=== PATIENT | male | born 1945 | race Caucasian/White ===

== ENCOUNTER → 2016-04-23 | Outpatient (CLI) | payer MEDICARE, OTHER ==
[~2016-04-23] MED LIST: /TAMS4CA PO; CIPR500T89 PO; FERR325T3 PO; FLAG500T PO; No medications; SYNT25TA PO; TRAZ50TA2 PO; TYLE325T5 PO; VANC5INJ5 PO; VENL37TA PO; WELL100T PO; WELL75TA PO; effexor xr PO
--- NOTE | 2016-04-23 13:14 | REP ---
CHEST X-RAY: PA AND LATERAL, 04/23/2016. Clinical history: Bronchitis symptoms. Cough. Comparison: 04/15/2012. Findings: Lungs are mildly hyperinflated. There is apical pleuroparenchymal scarring, right greater than left. There are postoperative changes with healed and remodeled fractures posterolateral right 6th and 7th ribs. No acute infiltrate, atelectasis or mass noted. The heart is not enlarged. The aorta is mildly tortuous but normal for age. Airway intact. I see no cuffed bronchi in the perihilar regions. The bones show no acute compression deformity or destructive lesion. There are marginal osteophytes evident. Impression: 1. No infiltrate effusion plain film signs of bronchitis or other acute parenchymal lung findings. 2. No cardiomegaly, edema, or significant mediastinal abnormality. 3. Chronic post-traumatic changes right posterolateral chest wall involving the 6th and 7th ribs. Signed by Shawn Vaughn MD 04/23/2016 07:36 P
== END ==
LOC: M ADAMS 10:58
PROVIDERS: ATTEND Physician Assistant Medical
DX: J20.9 Acute bronchitis, unspecified (principal)

== ENCOUNTER 2019-05-01 12:53 | Inpatient (IN) | payer MEDICARE ==
[~2019-05-01] VITALS: Ht 185.4 cm; Wt 61.5 kg
[~2019-05-01 12:53] MED LIST changes: -/TAMS4CA PO; +FLOM0.4C39 PO
[2019-05-01] MEDS ORDERED: EFFE75CA2 PO (13:06)
[2019-05-01 13:47] LABS: HEMATOCRIT 45.3 % (42.0-52.0); HEMOGLOBIN 14.9 g/dl (13.5-17.5); MEAN CORPUSCULAR HEMOGLOBIN 29.7 pg (27.0-33.0); MEAN CORPUSCULAR HGB CONC 32.9 g/dl (32.0-36.5); MEAN CORPUSCULAR VOLUME 90.2 fl (80.0-96.0); PLATELET COUNT, AUTOMATED 380 10^3/uL (150-450); RED BLOOD COUNT 5.02 10^6/uL (4.30-6.10); WHITE BLOOD COUNT 12.5 10^3/uL (4.0-10.0)
[2019-05-01 14:18] LABS: AMPHETAMINES LEVEL URINE NEGATIVE (NEGATIVE); BARBITURATES URINE NEGATIVE (NEGATIVE); BENZODIAZEPINES URINE NEGATIVE (NEGATIVE); CANNABINOIDS URINE NEGATIVE (NEGATIVE); COCAINE METABOLITE URINE NEGATIVE (NEGATIVE); METHADONE URINE NEGATIVE (NEGATIVE); OPIATES URINE NEGATIVE (NEGATIVE); PHENCYCLIDINE URINE NEGATIVE (NEGATIVE)
[2019-05-01 14:30] LABS: ACETAMINOPHEN LEVEL < 2.0 UG/ML (10.0-30.0); ALBUMIN 4.1 GM/DL (3.2-5.2); ALT/SGPT 23 U/L (12-78); BILIRUBIN,DIRECT 0.1 MG/DL (0.0-0.2); BILIRUBIN,TOTAL 0.4 MG/DL (0.2-1.0); BLOOD UREA NITROGEN 20 MG/DL (7-18); CALCIUM LEVEL 9.7 MG/DL (8.8-10.2); CARBON DIOXIDE LEVEL 33 MEQ/L (21-32); CHLORIDE LEVEL 99 MEQ/L (98-107); CREATININE FOR GFR 1.44 MG/DL (0.70-1.30); ETHYL ALCOHOL (ETHANOL) < 0.003 % (0.000-0.010); GLOMERULAR FILTRATION RATE 51.2 (>42); GLUCOSE, FASTING 133 MG/DL (70-100); POTASSIUM SERUM 4.4 MEQ/L (3.5-5.1); SALICYLATE LEVEL < 1.7 MG/DL (5.0-30.0); SODIUM LEVEL 137 MEQ/L (136-145); TOTAL PROTEIN 7.7 GM/DL (6.4-8.2)
--- NOTE | 2019-05-01 15:43 | REP ---
Clinical: Left inguinal pain. Technique: Real time baxter scale ultrasound examination using linear high frequency transducer. Findings: A nonreducible left inguinal hernia at the internal ring containing loop of bowel and mesenteric fat is appreciated. Inguinal defect measures up to 18 mm on Valsalva. Impression: A nonreducible left inguinal hernia containing loop of bowel. Electronically Signed by Emerson Mock MD 05/01/2019 03:35 P
--- NOTE | 2019-05-01 15:45 | REP ---
Clinical: Left groin pain. Technique: Real time baxter scale and Doppler evaluation using linear and curved array transducers. Findings: The bilateral testicles and epididymi are normal in contour, size, echogenicity and vascularity. No torsion, infectious/inflammatory process, or mass lesion identified. Small amount of scrotal fluid noted bilaterally. No varicocele. Right testicle measures 4.8 x 2.3 x 2.5 cm. Left testicle measures 4.2 x 1.7 x 2.3 cm. Impression: 1. Normal bilateral testicles/epididymi. 2. Small hydroceles. Electronically Signed by Emerson Mock MD 05/01/2019 03:36 P
[2019-05-01] MEDS ORDERED: IBUPROFEN 400 MG TAB PO PRN (18:15)
[2019-05-01] MEDS ORDERED: traZODone 50 MG TAB PO PRN (18:15)
[2019-05-01] MEDS ORDERED: MOM 30ML SUSPENSION UDC PO PRN (18:15)
[2019-05-01] MEDS ORDERED: MAALOX 30 ML SUSP *UDC PO PRN (18:15)
[2019-05-01 23:25] VITALS: BP 132/78
[2019-05-02 06:31] VITALS: BP 154/91
[2019-05-02] MEDS ORDERED: PREVNAR 13 VACCINE SYRINGE (CPT CODE:90670) IM ONE (09:00)
--- NOTE | 2019-05-02 09:17 | MHHPEPDOC ---
[facility] History & Physical History and Physical DATE OF ADMISSION: May 01, 2019 at 18:01 New Patient Taras Brady MRN: N/A Date of : N/A Date of Service: 05/02/2019 Chief Complaint "I stopped all my medications and now I am depressed." History of Present Illness The patient, a 73-year-old man with a history of depression previously on Effexor presents after stopping his medications some time ago. He reports that he became increasingly depressed, despondent and increasingly had difficulty attending to his needs due to his lack of motivation. The patient's ycpomdly-ic-zlv brought the patient in as she was concerned about his increasing depression and he had reported thoughts of wanting to end his life. He reported being essentially "home-bound." He reports that he had been on our inpatient unit several years ago and feels that he has returned to a similar level of disconcerting misery. Review Of Systems Depression: As above. Anxiety: The patient denies any excessive worry associated with physical symptoms. They deny any experience of discreet panic in the past. Cydney: The patient denies any episodes of euphoria/dysphoria associated with decreased need for sleep, hedonism, talkatively or impulsivity lasting longer than 5 days. Psychotic: The patient denies any experiences of auditory or visual hallucinations. They deny any episodes of paranoia or delusional thinking in the past Trauma: The patient denies any traumatic events associated with nightmares or intrusive thoughts. Borderline: The patient screens negative for borderline personality at this junction. Past Psychiatric History Has a history of depression treated on Effexor in the past. Reported that at 300 mg he had side effects and subsequently stopped it. The patient previously followed up with a private practice psychiatrist, but not currently. Reports no history of suicide attempts. Allergies Please see below. Family Psychiatric History The patient denies/is unaware any history of mental health history including addictions and suicide. Social History The patient is a currently man who has several adult children. 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 He graduated from high school with some college. No history of legal problems. He currently lives alone. Patient reports no history of trauma or abuse growing up in the local area. Substance Abuse History The patient denies any excessive alcohol use, tobacco or illicit drug use, denies history of substance use treatment. Medical History Has a history of hypercholesterolemia and prostate problems. Mental Status Examination General: Well dressed with good hygiene Speech: Spontaneous and fluid Thought processes: Linear and logical MSK: Smooth and coordinated gait, no signs of tremors or involuntary orofacial movements Thought content: Hopelessness Abstract reasoning, and computation: Intact Description of associations: Intact Description of abnormal or psychotic thoughts: Admits to some fleeting suicidal ideation. Denies homicidal. Denies auditory or visual hallucinations Judgment: fair Insight: fair Orientation: Alert and orientated 3 Cognition: Grossly normal Recent and remote memory: Intact Attention span and concentration: Intact Fund of knowledge: Adequate Mood: "bad" Affect: Dysthymic with a constricted range Diagnoses MDD, moderate to severe, recurrent. Assessment and Plan MDD: Resume venlafaxine 37.5 mg daily of extended release, discussed the risks, benefits and potential side effects with patient as well as alternatives. Disposition The patient need a further inpatient admission to treat his severe depression and suicidal thoughts. Problem List 1. Risk for suicide. 2. Depression. Initial Treatment Plan 1. Patient was admitted on a 9.39 legal status. 2. Complete history was obtained. 3. With patients permission, family will be contacted and database will be expanded. 4. Patients medication regimen will be reviewed and changed accordingly. 5. Patient will be provided with protected environment. 6. Patient will be treated with individual, group, and milieu therapies. 7. Patient will receive supportive psych-education. 8. Discharge planning will commence immediately. 9. Outpatient follow-up treatment will be strongly recommended. 10. The initial treatment plan will focus initially on: Estimated Length Of Stay 4 days. Time Spent 70 minutes with greater than 50% of time on counseling/coordination of care. Vital Signs Vital Signs Date Time Temp Pulse Resp B/P (MAP) Pulse Ox O2 Delivery O2 Flow Rate FiO2 05/02/19 06:31 97.3 63 18 154/91 (112) 05/01/19 23:25 97 Room Air Laboratory Data 24H Labs Laboratory Tests 2 05/01/19 13:35: Nucleated Red Blood Cells % (auto) 0.0, Anion Gap 5L, Glomerular Filtration Rate 51.2, Calcium Level 9.7, Total Bilirubin 0.4, Direct Bilirubin 0.1, Aspartate Amino Transf (AST/SGOT) 13, Alanine Aminotransferase (ALT/SGPT) 23, Alkaline Phosphatase 157H, Total Protein 7.7, Albumin 4.1, Albumin/Globulin Ratio 1.14, Thyroid Stimulating Hormone (TSH) 5.890H, Salicylates Level < 1.7L, Urine Opiates Screen NEGATIVE, Urine Methadone Screen NEGATIVE, Acetaminophen Level < 2.0L, Urine Barbiturates Screen NEGATIVE, Urine Phencyclidine Screen NEGATIVE, Urine Amphetamines Screen NEGATIVE, Urine Benzodiazepines Screen NEGATIVE, Urine Cocaine Metabolite Screen NEGATIVE, Urine Cannabinoids Screen NEGATIVE, Ethyl Alcohol Level < 0.003 CBC/BMP Laboratory Tests 05/01/19 13:35 Medications No Active Prescriptions or Reported Meds Allergies Coded Allergies: Penicillins (Verified Allergy, Unknown, 05/01/19) A-FIB/CHADSVASC A-FIB History Current/History of A-Fib/PAF?: No ELVIS ERVIN DO May 02, 2019 09:16
[2019-05-02] MEDS ORDERED: VENLAFAXINE **XR** 37.5 MG CAPSULE PO ONE (11:15)
[2019-05-02 16:00] VITALS: BP 119/71
--- NOTE | 2019-05-02 17:55 | HPEPDOC ---
[facility] Medical History & Physical Date of Admission May 02, 2019 Date of Service: May 02, 2019 Attending Physician: DUSTIN JERONIMO MD History and Physical CHIEF COMPLAINT: Depression HISTORY OF PRESENT ILLNESS: 73-year-old male with past medical history of depression is admitted to inpatient mental health unit for worsening depression. Patient reports that he stopped taking Effexor in November 2018 due to unwanted side effects. Patient reports worsening depression since then, reports decreased oral intake, fatigue and increased sleepiness over the past few weeks. His son and hnjkjjyf-qc-vsf got concerned and brought him to the hospital, has no cough place at this time. Patient reports fleeting thoughts of suicide but no plan or attempt, no suicidal or homicidal ideation at this time. He denies any short of breath, chest pain, nausea, vomiting, abdominal pain or diarrhea. 10 point review of system is negative except for above PAST MEDICAL HISTORY: 1. Depression. PAST SURGICAL HISTORY: 1. Cataract surgery. SOCIAL HISTORY: Previous smoker, quit many years ago. Denies alcohol use. Next eye denies drug use FAMILY HISTORY: Mother had COPD ALLERGIES: Please see below. HOME MEDICATIONS: Please see below. PHYSICAL EXAMINATION: VITAL SIGNS: Please see below. GENERAL: No distress HEENT: Normocephalic, atraumatic, moist mucous membranes NECK: Supple CARDIOVASCULAR EXAMINATION: S1, S2, no murmurs RESPIRATORY EXAMINATION: Clear to auscultation, no wheezing ABDOMINAL EXAMINATION: Soft, nontender, nondistended, positive bowel sounds EXTREMITIES: Range of motion intact SKIN: No rash NEUROLOGICAL EXAMINATION: Alert and oriented 3, no focal deficits PSYCHIATRIC EXAMINATION: Calm and cooperative LABORATORY DATA: See below. MICROBIOLOGY: Please see below. ASSESSMENT: 73-year-old male with past medical history depression is admitted to inpatient mental health unit for worsening depression after stopping his medication. PLAN: 1. Depression. Management as per primary team 2. Elevated creatinine. Reports recently decreased oral intake, recommend increase oral intake, repeat labs and follow up with primary care physician in the outpatient setting. Denies prior history of chronic kidney disease Vital Signs Vital Signs Date Time Temp Pulse Resp B/P (MAP) Pulse Ox O2 Delivery O2 Flow Rate FiO2 05/02/19 11:11 Room Air 05/02/19 06:31 97.3 63 18 154/91 (112) 05/01/19 23:25 97 Home Medications No Active Prescriptions or Reported Meds Allergies Coded Allergies: Penicillins (Verified Allergy, Unknown, 05/01/19) A-FIB/CHADSVASC A-FIB History Current/History of A-Fib/PAF?: No DUSTIN JERONIMO MD May 02, 2019 17:55
[2019-05-03 06:54] VITALS: BP 153/72
[2019-05-03] MEDS ORDERED: VENLAFAXINE **XR** 37.5 MG CAPSULE PO SCH (09:00)
--- NOTE | 2019-05-03 10:36 | MHIPNPDOC ---
[facility] Progress Note Progress Note Inpatient Progress Note Taras Brady MRN: N/A Date of : N/A Date of Service: 05/03/2019 History of Present Illness The patient, a 73-year-old man with a history of depression previously on Effexor presents after stopping his medications some time ago. He reports that he became increasingly depressed, despondent and increasingly had difficulty attending to his needs due to his lack of motivation. The patient's oqoyolyc-jy-cfc brought the patient in as she was concerned about his increasing depression and he had reported thoughts of wanting to end his life. He reported being essentially "home-bound." He reports that he had been on our inpatient unit several years ago and feels that he has returned to a similar level of disconcerting misery. Interval History Narrative: The patient has met with. He reports he is doing "fine." Affective: The patient reports some improved mood, but still some loss of interest and concentration problems Psychotic: Denies any symptoms. Anxiety: Reports some situational worries. Eating and sleeping behaviors: Normalizing. Group Attendance: Frequent. Medication Side effects: See ROS below Behavioral problems/significant events overnight: None reported. Staff Report: The patient is generally easy to engage, although appears quite depressed. Review Of Systems General: Denies fever or appetite changes Cardiovascular: Denies Chest pain or palpations GI: Denies Nausea, vomiting, or bowel changes Respiratory: Denies shortness of breath or cough Neuro: Denies dizziness, tremors Derm: Denies any rashes or pruritus : Denies any dysuria or urinary problems MSK: Denies any muscle tightness or stiffness HEENT: Denies any vision changes or headaches Psychotherapy None on this visit. Vital Signs Reviewed. Mental Status Examination General: Well dressed with good hygiene Speech: Spontaneous and fluid Thought processes: Linear and logical MSK: Smooth and coordinated gait, no signs of tremors or involuntary orofacial movements Thought content: Hopelessness Abstract reasoning, and computation: Intact Description of associations: Intact Description of abnormal or psychotic thoughts: Admits to some fleeting suicidal ideation. Denies homicidal. Denies auditory or visual hallucinations Judgment: fair Insight: fair Orientation: Alert and orientated 3 Cognition: Grossly normal Recent and remote memory: Intact Attention span and concentration: Intact Fund of knowledge: Adequate Mood: "a little better" Affect: Some improvement, but still quite dysthymic Diagnoses MDD, moderate to severe, recurrent. Assessment and Plan MDD: Increase venlafaxine to 75 mg daily of extended release. Disposition The patient will be converted to voluntary status and observed over the weekend, with potential discharge on Monday will be undertaken if there is improvement. Time Spent 15 minutes acpe-kg-[id number]. Monday Vital Signs Vital Signs Date Time Temp Pulse Resp B/P (MAP) Pulse Ox O2 Delivery O2 Flow Rate FiO2 05/03/19 06:54 98.6 58 14 153/72 (99) 05/02/19 11:11 Room Air 05/01/19 23:25 97 Current Medications Current Medications Medications (Trade) Dose Ordered Sig/Kori Route PRN Reason Start Time Stop Time Status Last Admin Dose Admin Al Hydrox/Mg Hydrox/Simethicone (Mylanta) 30 ml Q4HP PRN PO HEARTBURN/INDIGESTION 05/01/19 18:15 Home Med (Med Rec Complete!) ASDIRECTED XX 05/01/19 18:30 05/01/19 18:27 DC Ibuprofen (Advil) 400 mg Q6HP PRN PO PAIN 05/01/19 18:15 Magnesium Hydroxide (Milk Of Magnesia) 30 ml DAILYPRN PRN PO CONSTIPATION 05/01/19 18:15 Trazodone HCl (Desyrel) 50 mg QHSP PRN PO INSOMNIA 05/01/19 18:15 Venlafaxine HCl (Effexor Xr) 37.5 mg DAILY PO 05/03/19 09:00 05/03/19 08:40 Allergies Coded Allergies: Penicillins (Verified Allergy, Unknown, 05/01/19) ELVIS ERVIN DO May 03, 2019 10:36
[2019-05-03 16:50] VITALS: BP 130/74
[2019-05-04 06:18] VITALS: BP 137/64
[2019-05-04] MEDS ORDERED: VENLAFAXINE **XR** 75MG CAPSULE PO SCH (09:00)
--- NOTE | 2019-05-04 15:28 | MHIPNPDOC ---
[facility] Progress Note Progress Note DATE OF SERVICE: 05/04/19 HISTORY: As per Dr. Dial: "History of Present Illness The patient, a 73-year-old man with a history of depression previously on Effexor presents after stopping his medications some time ago. He reports that he became increasingly depressed, despondent and increasingly had difficulty attending to his needs due to his lack of motivation. The patient's yoxidnmr-pi-lll brought the patient in as she was concerned about his increasing depression and he had reported thoughts of wanting to end his life. He reported being essentially "home-bound." He reports that he had been on our inpatient unit several years ago and feels that he has returned to a similar level of disconcerting misery." VITAL SIGNS: See below. NEW TEST RESULTS: See below CURRENT MEDICATIONS: See below. MENTAL STATUS EXAMINATION: Patient is a 73 year old male, who is alert, cooperative, dressed in hospital clothes, clean . Speech: Is slow, spontaneous and fluent, normal tone and volume. Language skills are intact. Thought processes including: linear and coherent. Thought content: He feels hopeless, helpless, fleeting SI w/o a plan. Denies HI, denies thought delusions. Abstract reasoning, and computation: Good. Description of associations: Intact Description of abnormal or psychotic thoughts: denies thought delusions, denies TAv hallucinations, not responding to internal stimuli. Judgment: Fair Insight: fair. Orientation: x 3. Recent and remote memory: Intact. Attention span and concentration: adequate Fund of knowledge: adequate Mood: sad/depressed. Affect: constricted, congruent with mood. DIAGNOSES: MDD, moderate to severe, recurrent. ASSESSMENT: will discuss with Dr. Dial possible medication change becaus the patient and his daughter say that he has been o Effexor before and he doesn't like the way it makes him feel. His daughter says he was on this edication for a long period of time and she never saw the results of it. The patient says he has been on Effexor, Wellbutrin and he can't recall other SNR'Is or SSRI's but he says that he would be willing to take something that would help him. He says his mother had depression and he knows he has inherited it, has suffered from it for a long period of time. Discussed with him about starting Sertraline and spoke with Dr. Dial, both of them agree to change his medication. MANAGEMENT PLAN: -discontinue Effexor XR 75 mgs Po daily -start Zoloft 50 mgs PO daily TIME SPENT: 20 minutes. Vital Signs Vital Signs Date Time Temp Pulse Resp B/P (MAP) Pulse Ox O2 Delivery O2 Flow Rate FiO2 05/04/19 06:18 97.2 57 18 137/64 (88) 05/02/19 11:11 Room Air 05/01/19 23:25 97 Current Medications Current Medications Medications (Trade) Dose Ordered Sig/Kori Route PRN Reason Start Time Stop Time Status Last Admin Dose Admin Al Hydrox/Mg Hydrox/Simethicone (Mylanta) 30 ml Q4HP PRN PO HEARTBURN/INDIGESTION 05/01/19 18:15 Home Med (Med Rec Complete!) ASDIRECTED XX 05/01/19 18:30 05/01/19 18:27 DC Ibuprofen (Advil) 400 mg Q6HP PRN PO PAIN 05/01/19 18:15 Magnesium Hydroxide (Milk Of Magnesia) 30 ml DAILYPRN PRN PO CONSTIPATION 05/01/19 18:15 Trazodone HCl (Desyrel) 50 mg QHSP PRN PO INSOMNIA 05/01/19 18:15 05/03/19 21:48 Venlafaxine HCl (Effexor Xr) 37.5 mg DAILY PO 05/03/19 09:00 05/03/19 13:04 DC 05/03/19 08:40 Venlafaxine HCl (Effexor Xr) 75 mg DAILY PO 05/04/19 09:00 05/04/19 09:35 Allergies Coded Allergies: Penicillins (Verified Allergy, Unknown, 05/01/19) MYRANDA CASTELLANOS MD May 04, 2019 15:16
[2019-05-04 16:13] VITALS: BP 125/65
[2019-05-05 06:38] VITALS: BP 152/78
[2019-05-05] MEDS: SERTRALINE HCL 50 MG TAB PO SCH (09:33)
--- NOTE | 2019-05-05 11:00 | MHIPNPDOC ---
[facility] Progress Note Progress Note DATE OF SERVICE: 05/05/19 DATE OF SERVICE: 05/04/19 HISTORY: As per Dr. Dial: "History of Present Illness The patient, a 73-year-old man with a history of depression previously on Effexor presents after stopping his medications some time ago. He reports that he became increasingly depressed, despondent and increasingly had difficulty attending to his needs due to his lack of motivation. The patient's qrndffqo-iw-qho brought the patient in as she was concerned about his increasing depression and he had reported thoughts of wanting to end his life. He reported being essentially "home-bound." He reports that he had been on our inpatient unit several years ago and feels that he has returned to a similar level of disconcerting misery." VITAL SIGNS: See below. NEW TEST RESULTS: See below CURRENT MEDICATIONS: See below. MENTAL STATUS EXAMINATION: Patient is a 73 year old male, who is alert, cooperative, dressed in hospital clothes, clean . Speech: Is slow, spontaneous and fluent, normal tone and volume. Language skills are intact. Thought processes including: linear and coherent. Thought content: He feels hopeless, helpless, fleeting SI w/o a plan. Denies HI, denies thought delusions. Abstract reasoning, and computation: Good. Description of associations: Intact Description of abnormal or psychotic thoughts: denies thought delusions, denies TAv hallucinations, not responding to internal stimuli. Judgment: Fair Insight: fair. Orientation: x 3. Recent and remote memory: Intact. Attention span and concentration: adequate Fund of knowledge: adequate Mood: irritable/sad Affect: constricted, congruent with mood. DIAGNOSES: MDD, moderate to severe, recurrent. ASSESSMENT: Spoke with patient this morning who reports receiving his zoloft 50 mgs. He says he took it 1/2 hour ago, he can't tell of any side effects at this time. Will continue to monitor. MANAGEMENT PLAN: -discontinue Effexor XR 75 mgs Po daily -start Zoloft 50 mgs PO daily TIME SPENT: 20 minutes. Vital Signs Vital Signs Date Time Temp Pulse Resp B/P (MAP) Pulse Ox O2 Delivery O2 Flow Rate FiO2 05/05/19 06:38 98.7 18 152/78 (102) 05/04/19 16:13 64 05/02/19 11:11 Room Air 2/19/20 23:25 97 Current Medications Current Medications Medications (Trade) Dose Ordered Sig/Kori Route PRN Reason Start Time Stop Time Status Last Admin Dose Admin Al Hydrox/Mg Hydrox/Simethicone (Mylanta) 30 ml Q4HP PRN PO HEARTBURN/INDIGESTION 05/01/19 18:15 Home Med (Med Rec Complete!) ASDIRECTED XX 05/01/19 18:30 05/01/19 18:27 DC Ibuprofen (Advil) 400 mg Q6HP PRN PO PAIN 05/01/19 18:15 Magnesium Hydroxide (Milk Of Magnesia) 30 ml DAILYPRN PRN PO CONSTIPATION 05/01/19 18:15 Sertraline HCl (Zoloft) 50 mg DAILY PO 05/05/19 09:00 05/05/19 09:33 Trazodone HCl (Desyrel) 50 mg QHSP PRN PO INSOMNIA 05/01/19 18:15 05/03/19 21:48 Venlafaxine HCl (Effexor Xr) 37.5 mg DAILY PO 05/03/19 09:00 05/03/19 13:04 DC 05/03/19 08:40 Venlafaxine HCl (Effexor Xr) 75 mg DAILY PO 05/04/19 09:00 05/04/19 15:29 DC 05/04/19 09:35 Allergies Coded Allergies: Penicillins (Verified Allergy, Unknown, 05/01/19) MYRANDA CASTELLANOS MD May 05, 2019 10:38
[2019-05-05 16:00] VITALS: BP 112/57
[2019-05-06 07:02] VITALS: BP 157/92
--- NOTE | 2019-05-06 08:44 | MHIPNPDOC ---
[facility] Progress Note Progress Note Taras Brady Inpatient Progress Note Taras Brady Select Gender MRN: N/A Date of : MM/DD/YYYY Date of Service: 05/06/2019 History of Present Illness The patient, a 73-year-old man with a history of depression previously on Effexor presents after stopping his medications some time ago. He reports that he became increasingly depressed, despondent and increasingly had difficulty attending to his needs due to his lack of motivation. The patient's klzigvub-jo-rpw brought the patient in as she was concerned about his increasing depression and he had reported thoughts of wanting to end his life. He reported being essentially "home-bound." He reports that he had been on our inpatient unit several years ago and feels that he has returned to a similar level of disconcerting misery. Interval History Narrative: The patient is met with today, reports that he is doing better on the sertraline. Affective: The patient reports improved low mood, his interest and concentration problems are improving as well. Psychotic: Denies any symptoms. Anxiety: Reports some situational worries. Eating and sleeping behaviors: Normalizing. Group Attendance: Frequent. Medication Side effects: See ROS below Behavioral problems/significant events overnight: None reported. Staff Report: The patient is more active and engaged. Review Of Systems General: Denies fever or appetite changes Cardiovascular: Denies Chest pain or palpations GI: Denies Nausea, vomiting, or bowel changes Respiratory: Denies shortness of breath or cough Neuro: Denies dizziness, tremors Derm: Denies any rashes or pruritus : Denies any dysuria or urinary problems MSK: Denies any muscle tightness or stiffness HEENT: Denies any vision changes or headaches Psychotherapy None on this visit. Vital Signs Reviewed. Mental Status Examination General: Well dressed with good hygiene Speech: Spontaneous and fluid Thought processes: Linear and logical MSK: Smooth and coordinated gait, no signs of tremors or involuntary orofacial movements Thought content: Less hopelessness and more future orientation. Abstract reasoning, and computation: Intact Description of associations: Intact Description of abnormal or psychotic thoughts: Admits to no suicidal or homicidal ideation. Denies auditory or visual hallucinations. Judgment: fair Insight: fair Orientation: Alert and orientated 3 Cognition: Grossly normal Recent and remote memory: Intact Attention span and concentration: Intact Fund of knowledge: Adequate Mood: "a little better" Affect: Improved and more reactive. Diagnoses MDD, moderate to severe, recurrent. Assessment and Plan MDD: Increase sertraline to 75 mg daily. Disposition Discharge tomorrow at patient's behest. Time Spent 15 minutes [id number]. Vital Signs Vital Signs Date Time Temp Pulse Resp B/P (MAP) Pulse Ox O2 Delivery O2 Flow Rate FiO2 05/06/19 07:02 97.8 62 18 157/92 (113) Room Air 05/01/19 23:25 97 Current Medications Current Medications Medications (Trade) Dose Ordered Sig/Kori Route PRN Reason Start Time Stop Time Status Last Admin Dose Admin Al Hydrox/Mg Hydrox/Simethicone (Mylanta) 30 ml Q4HP PRN PO HEARTBURN/INDIGESTION 05/01/19 18:15 Home Med (Med Rec Complete!) ASDIRECTED XX 05/01/19 18:30 05/01/19 18:27 DC Ibuprofen (Advil) 400 mg Q6HP PRN PO PAIN 05/01/19 18:15 Magnesium Hydroxide (Milk Of Magnesia) 30 ml DAILYPRN PRN PO CONSTIPATION 05/01/19 18:15 Sertraline HCl (Zoloft) 50 mg DAILY PO 05/05/19 09:00 05/05/19 09:33 Trazodone HCl (Desyrel) 50 mg QHSP PRN PO INSOMNIA 05/01/19 18:15 05/03/19 21:48 Venlafaxine HCl (Effexor Xr) 37.5 mg DAILY PO 05/03/19 09:00 05/03/19 13:04 DC 05/03/19 08:40 Venlafaxine HCl (Effexor Xr) 75 mg DAILY PO 05/04/19 09:00 05/04/19 15:29 DC 05/04/19 09:35 Allergies Coded Allergies: Penicillins (Verified Allergy, Unknown, 05/01/19) ELVIS ERVIN DO May 06, 2019 08:44
[2019-05-06] MEDS: SERTRALINE HCL 50 MG TAB PO SCH (08:50)
[2019-05-06 15:50] VITALS: BP 139/72
[2019-05-07 06:59] VITALS: BP 192/93
[2019-05-07] MEDS ORDERED: LORazepam 0.5 MG TAB PO ONE (07:00)
[2019-05-07] MEDS ORDERED: SERT25TA21 PO (07:32)
--- NOTE | 2019-05-07 07:32 | MHDSPDOC ---
[facility] Discharge Summary Discharge Summary DATE OF ADMISSION: May 01, 2019 at 18:01 DATE OF DISCHARGE: 05/07/19 Taras Brady Discharge Taras Brady Select Gender MRN: N/A Date of : MM/DD/YYYY Date of Service: 05/07/2019 Diagnoses MDD, moderate to severe, recurrent. History of Present Illness The patient, a 73-year-old man with a history of depression previously on Effexor presents after stopping his medications some time ago. He reports that he became increasingly depressed, despondent and increasingly had difficulty attending to his needs due to his lack of motivation. The patient's daug hter-in-law brought the patient in as she was concerned about his increasing depression and he had reported thoughts of wanting to end his life. He reported being essentially "home-bound." He reports that he had been on our inpatient unit several years ago and feels that he has returned to a similar level of disconcerting misery. Consultants Involved Hospitalist/PCP screening Treatment and Progress On The Unit The patient was admitted to the inpatient mental health unit and resumed on previously effective venlafaxine. He was titrated up to 75 mg daily, but had some side effects in the form of upset stomach and subsequently was changed on the sertraline over the weekend. The patient was increased on his sertraline to an effective dose. He participated well in the groups and remained in behavioral control. He denied any suicidal and homicidal ideation through the majority of his admission. He was eventually tapered up to a sufficient dose of antidepressant and slated for discharge at his request. He was sent home with a small supply of Ativan after a discussion about the risks related to sedation, dizziness, and not to operate motor vehicles while taking it in between him leaving our unit and seeing our outpatient provider that we had arranged for him. Discharge Assessment The patient is a 73-year-old man, who presents with depression and vague SI, is treated with various antidepressants and does well on sertraline. He participates well in the programming without significant problems. The patient at the time of discharge did not meet criteria for involuntary admission/extension due to had a normal mental status exam on last exam, has been consistently denying suicidal or homicidal ideation through his admission. They are engaged in the discharge process, as well as being friendly and amenable in behavioral control and havent been engaging in any observed concerning behavior or ideation recently. They decline voluntary extension/admission at this time and must be discharged in good janey, as Im unable to make a case for holding the patient against their will. They may have historical risk factors of admissions and other interactions with psychiatry however, those are not modifiable from a clinical perspective. The patient will need to be discharged in good janey. Mental Status Examination General: Well dressed with good hygiene Speech: Spontaneous and fluid Thought processes: Linear and logical MSK: Smooth and coordinated gait, no signs of tremors or involuntary orofacial movements Thought content: Future orientated Abstract reasoning, and computation: Intact Description of associations: Intact Description of abnormal or psychotic thoughts: Denies any suicidal or homicidal ideation. Denies any auditory or visual hallucinations. Does not appear to be responding to internal stimuli. Does not appear to be endorsing any bizarre or paranoid ideation. Judgment: fair Insight: fair Orientation: Alert and orientated 3 Cognition: Grossly normal Recent and remote memory: Intact Attention span and concentration: Intact Fund of knowledge: Adequate Mood: "okay" Affect: Euthymic with a full range The patient was discharged before a [id number] could be completed, please see my last note for the most up-to-date mental status exam prior to discharge. Follow Up The social work team worked during the predischarge meeting in order to evaluate for further issues of lethality address them fully before discharge. They worked on safety planning with the patient's family members in order to ensure that the patient will have a safe and effective discharge. Time Spent The amount of time spent in the coordination of care for this patient was approximately 40 minutes. Vital Signs/I&Os Vital Signs Date Time Temp Pulse Resp B/P (MAP) Pulse Ox O2 Delivery O2 Flow Rate FiO2 05/07/19 06:59 97.9 58 16 192/93 (126) 05/06/19 07:02 Room Air 05/01/19 23:25 97 Laboratory Data Microbiology Microbiology 05/06/19 Respiratory Virus Panel (PCR) ([facility]) - Final, Complete Medications Scheduled Oseltamivir Phosphate (Tamiflu) 30 Mg Capsule, 1 CAP PO DAILY for mood for 4 Days, #4 Sertraline HCl (Sertraline HCl) 25 Mg Tablet, 75 MG PO DAILY for mood for 7 Days, #21 Scheduled PRN Lorazepam (Ativan) 0.5 Mg Tablet, 0.5 MG PO DAILYPRN PRN for anxiety for 5 Days, #5 Allergies Coded Allergies: Penicillins (Verified Allergy, Unknown, 05/01/19) ELVIS ERVIN DO May 07, 2019 07:32
[2019-05-07] MEDS ORDERED: SERTRALINE HCL 25 MG TABLET PO SCH (09:00)
[2019-05-07] MEDS ORDERED: OSELTAMIVIR PHOSPHATE 30MG CAPSULE PO SCH (09:00)
[2019-05-07 11:09] LABS: BLOOD UREA NITROGEN 16 MG/DL (7-18); CALCIUM LEVEL 9.3 MG/DL (8.8-10.2); CARBON DIOXIDE LEVEL 30 MEQ/L (21-32); CHLORIDE LEVEL 101 MEQ/L (98-107); CREATININE FOR GFR 1.17 MG/DL (0.70-1.30); GLOMERULAR FILTRATION RATE > 60.0 (>42); GLUCOSE, FASTING 108 MG/DL (70-100); POTASSIUM SERUM 4.5 MEQ/L (3.5-5.1); SODIUM LEVEL 136 MEQ/L (136-145)
--- NOTE | 2019-05-07 12:33 | IPNPDOC ---
Text Note Date of Service The patient was seen on 05/07/19. NOTE Pt was exposed to the influenza virus via close contact for up to 7 days. Pt was negative for the flu per respiratory swab 05/06/19 and remains asymptomatic today. He is to be treated with Tamiflu prophylactic (renally dosed per pharmacy) once per day for 10 days. He will increase the dose to twice per day if he later develops symptoms of the flu. VS,Fishbone, I+O VS, Fishbone, I+O Laboratory Tests 05/07/19 10:38 Vital Signs Date Time Temp Pulse Resp B/P (MAP) Pulse Ox O2 Delivery O2 Flow Rate FiO2 05/07/19 06:59 97.9 58 16 192/93 (126) 05/06/19 07:02 Room Air 05/01/19 23:25 97 TOSIN DUARTE PA-C May 07, 2019 12:33
[2019-05-07] MEDS ORDERED: ATIV1TAB10 PO (12:48)
[2019-05-08] MEDS ORDERED: TAMI30CA PO (08:52)
== END 2019-05-07 13:30 | disposition home or self-care (01) | DRG 885 ==
LOC: M ED 12:53 → M ED INP 18:01 → M PSY 23:20
PROVIDERS: ADMIT Psychiatry & Neurology Addiction Medicine; ATTEND Psychiatry & Neurology Addiction Medicine
DX: F33.2 Major depressive disorder, recurrent severe without psychotic features (principal); Z88.0 Allergy status to penicillin; Z87.891 Personal history of nicotine dependence

== ENCOUNTER → 2019-11-13 | Outpatient (REF) | payer MEDICARE ==
[~2019-11-13] MED LIST changes: +ATIV1TAB10 PO; +EFFE75CA2 PO; +SERT25TA21 PO; +TAMI30CA PO
[2019-11-13 14:24] LABS: BASO # 0.1 10^3/uL (0.0-0.2); BASO % 0.8 % (0.0-1.0); EOS # 0.2 10^3/uL (0.0-0.5); EOS % 2.1 % (0.0-3.0); HEMOGLOBIN 13.8 g/dl (13.5-17.5); LYMPH # 2.4 10^3/uL (1.5-5.0); LYMPH % 28.5 % (24.0-44.0); MEAN CORPUSCULAR HEMOGLOBIN 29.6 pg (27.0-33.0); MEAN CORPUSCULAR HGB CONC 32.1 g/dl (32.0-36.5); MEAN CORPUSCULAR VOLUME 92.1 fl (80.0-96.0); MONO # 0.7 10^3/uL (0.0-0.8); MONO % 8.2 % (0.0-5.0); NEUTROPHILS # 5.1 10^3/uL (1.5-8.5); PLATELET COUNT, AUTOMATED 357 10^3/uL (150-450); RED BLOOD COUNT 4.67 10^6/uL (4.30-6.10); WHITE BLOOD COUNT 8.4 10^3/uL (4.0-10.0)
[2019-11-13 14:47] LABS: ALBUMIN 3.4 GM/DL (3.2-5.2); ALT/SGPT 19 U/L (12-78); BILIRUBIN,TOTAL 0.4 MG/DL (0.2-1.0); BLOOD UREA NITROGEN 19 MG/DL (7-18); CALCIUM LEVEL 9.2 MG/DL (8.8-10.2); CARBON DIOXIDE LEVEL 32 MEQ/L (21-32); CHLORIDE LEVEL 102 MEQ/L (98-107); FREE T4 0.88 NG/DL (0.76-1.46); GLOMERULAR FILTRATION RATE > 60.0 (>42); GLUCOSE, FASTING 86 MG/DL (70-100); POTASSIUM SERUM 5.2 MEQ/L (3.5-5.1); SODIUM LEVEL 137 MEQ/L (136-145); TOTAL PROTEIN 7.3 GM/DL (6.4-8.2)
== END ==
LOC: M LABDRWAD 13:07
PROVIDERS: ATTEND Physician Assistant Medical
DX: F32.9 Major depressive disorder, single episode, unspecified (principal)

== ENCOUNTER → 2019-12-13 | Outpatient (REF) | payer MEDICARE ==
[2019-12-13 13:06] LABS: BASO # 0.1 10^3/uL (0.0-0.2); BASO % 0.7 % (0.0-1.0); EOS # 0.5 10^3/uL (0.0-0.5); EOS % 4.5 % (0.0-3.0); HEMATOCRIT 41.5 % (42.0-52.0); HEMOGLOBIN 13.4 g/dl (13.5-17.5); LYMPH # 2.7 10^3/uL (1.5-5.0); LYMPH % 23.7 % (24.0-44.0); MEAN CORPUSCULAR HEMOGLOBIN 29.3 pg (27.0-33.0); MEAN CORPUSCULAR HGB CONC 32.3 g/dl (32.0-36.5); MEAN CORPUSCULAR VOLUME 90.8 fl (80.0-96.0); MONO # 0.9 10^3/uL (0.0-0.8); MONO % 7.6 % (0.0-5.0); NEUTROPHILS # 7.2 10^3/uL (1.5-8.5); NEUTROPHILS % 63.2 % (36.0-66.0); PLATELET COUNT, AUTOMATED 398 10^3/uL (150-450); RED BLOOD COUNT 4.57 10^6/uL (4.30-6.10); WHITE BLOOD COUNT 11.4 10^3/uL (4.0-10.0)
[2019-12-13 13:30] LABS: ALBUMIN 3.6 GM/DL (3.2-5.2); ALT/SGPT 29 U/L (12-78); BILIRUBIN,TOTAL 0.4 MG/DL (0.2-1.0); BLOOD UREA NITROGEN 25 MG/DL (7-18); CALCIUM LEVEL 9.3 MG/DL (8.8-10.2); CARBON DIOXIDE LEVEL 30 MEQ/L (21-32); CHLORIDE LEVEL 104 MEQ/L (98-107); CHOLESTEROL LEVEL 209 MG/DL (<200); CHOLESTEROL RISK RATIO 4.019 (<5); CREATININE FOR GFR 1.05 MG/DL (0.70-1.30); FREE T4 0.94 NG/DL (0.76-1.46); GLOMERULAR FILTRATION RATE > 60.0 (>42); GLUCOSE, FASTING 97 MG/DL (70-100); HDL CHOLESTEROL 52 MG/DL (>40); LDL CHOLESTEROL 133 MG/DL (<100); NON-HDL-C 157 MG/DL; POTASSIUM SERUM 5.3 MEQ/L (3.5-5.1); SODIUM LEVEL 138 MEQ/L (136-145); TOTAL PROTEIN 7.3 GM/DL (6.4-8.2); TRIGLYCERIDES LEVEL 121 MG/DL (<150)
[2019-12-13 14:17] LABS: HEMOGLOBIN A1c 5.5 %
== END ==
LOC: M SFHCADAM 11:25
PROVIDERS: ATTEND Physician Assistant Medical
DX: F33.2 Major depressive disorder, recurrent severe without psychotic features (principal); R73.01 Impaired fasting glucose; R79.89 Other specified abnormal findings of blood chemistry; Z23 Encounter for immunization
CPT/HCPCS: 80053; 80061; 83036; 84439; 84443; 85025; 90682; G0008; G0463

== ENCOUNTER → 2020-06-16 | Outpatient (REF) | payer MEDICARE ==
[2020-06-16 13:58] LABS: FREE T4 0.98 NG/DL (0.76-1.46); THYROID STIMULATING HORMONE 10.3 uIU/ML (0.358-3.740)
== END ==
LOC: M SFHCADAM 08:40
PROVIDERS: ATTEND Physician Assistant Medical
DX: E03.9 Hypothyroidism, unspecified (principal)

== ENCOUNTER 2020-11-25 16:06 | Inpatient (IN) | payer MEDICARE ==
[~2020-11-25] VITALS: Ht 185.4 cm; Wt 56.0 kg
[2020-11-25] MEDS ORDERED: BUPR150T12 PO (16:20)
[2020-11-25] MEDS ORDERED: LEVO50TA5 PO (16:20)
[2020-11-25] MEDS ORDERED: VENL75CA47 PO (16:20)
[2020-11-25 16:40] LABS: HEMATOCRIT 52.1 % (42.0-52.0); HEMOGLOBIN 17.2 g/dl (13.5-17.5); MEAN CORPUSCULAR HEMOGLOBIN 29.9 pg (27.0-33.0); MEAN CORPUSCULAR VOLUME 90.5 fl (80.0-96.0); PLATELET COUNT, AUTOMATED 392 10^3/uL (150-450); RED BLOOD COUNT 5.76 10^6/uL (4.30-6.10); WHITE BLOOD COUNT 10.5 10^3/uL (4.0-10.0)
[2020-11-25] MEDS ORDERED: NS 1,000 ML IV ONE (16:45)
[2020-11-25 17:14] LABS: BLOOD UREA NITROGEN 26 MG/DL (7-18); CALCIUM LEVEL 9.6 MG/DL (8.8-10.2); CARBON DIOXIDE LEVEL 16 MEQ/L (21-32); CHLORIDE LEVEL 100 MEQ/L (98-107); CK-MB VALUE MASS 18.9 NG/ML (<3.6); CPK CREATINE PHOSPHOKINASE 207 U/L (39-308); CREATININE FOR GFR 1.69 MG/DL (0.70-1.30); FREE THYROXINE INDEX 3.4 % (1.4-3.8); GLOMERULAR FILTRATION RATE 42.3 (>42); GLUCOSE, FASTING 82 MG/DL (70-100); MB/CK RELATIVE INDEX 9.13 (< OR =4); POTASSIUM SERUM 3.9 MEQ/L (3.5-5.1); SODIUM LEVEL 138 MEQ/L (136-145); T UPTAKE 36 % (33-40); THYROXINE (T4) 9.5 UG/DL (4.5-12.0); TROPONIN I 0.05 NG/ML (< 0.10)
[2020-11-25] MEDS ORDERED: HOME MED LIST COMPLETE! XX SCH (19:05)
[2020-11-25 19:29] LABS: RSV AMPLIFICATION NEGATIVE (NEGATIVE)
[2020-11-25] MEDS ORDERED: ACETAMINOPHEN TAB 650MG DOSE (2X325MG) PO PRN (20:00)
[2020-11-25 20:46] LABS: ALBUMIN 3.6 GM/DL (3.2-5.2); ALT/SGPT 20 U/L (12-78); BILIRUBIN,DIRECT 0.2 MG/DL (0.0-0.2); BILIRUBIN,TOTAL 0.5 MG/DL (0.2-1.0); FREE T3 2.2 PG/ML (2.2-4.0); FREE T4 1.31 NG/DL (0.76-1.46); MAGNESIUM LEVEL 2.2 MG/DL (1.8-2.4); PHOSPHORUS LEVEL 4.5 MG/DL (2.5-4.9); PREALBUMIN 10.7 MG/DL (20.0-40.0); TOTAL PROTEIN 7.4 GM/DL (6.4-8.2)
[2020-11-25 21:37] LABS: ACETAMINOPHEN LEVEL < 2.0 UG/ML (10.0-30.0); ETHYL ALCOHOL (ETHANOL) 0.004 % (0.000-0.010); SALICYLATE LEVEL 2.5 MG/DL (5.0-30.0)
[2020-11-25] MEDS ORDERED: LORazepam 2 MG TAB PO PRN (21:50)
[2020-11-25] MEDS ORDERED: LACTATED RINGER'S 1000 ML IV ONE (22:40)
[2020-11-25] MEDS: LR 1,000 ML IV SCH (22:48)
[2020-11-25 23:26] LABS: CK-MB VALUE MASS 14.4 NG/ML (<3.6); MB/CK RELATIVE INDEX 7.74 (< OR =4); TROPONIN I 0.25 NG/ML (< 0.10)
[2020-11-26] MEDS ORDERED: ASPIRIN 81 MG CHEW TABLET PO ONE (00:25)
[2020-11-26 06:03] VITALS: BP 98/65
[2020-11-26 06:23] LABS: HEMATOCRIT 43.2 % (42.0-52.0); MEAN CORPUSCULAR HEMOGLOBIN 30.1 pg (27.0-33.0); MEAN CORPUSCULAR HGB CONC 34.3 g/dl (32.0-36.5); RED BLOOD COUNT 4.91 10^6/uL (4.30-6.10); WHITE BLOOD COUNT 9.2 10^3/uL (4.0-10.0)
[2020-11-26 06:24] LABS: HEMOGLOBIN 14.8 g/dl (13.5-17.5); PLATELET COUNT, AUTOMATED 286 10^3/uL (150-450)
[2020-11-26] MEDS: LEVOTHYROXINE 50MCG TABLET (0.05MG) PO SCH (06:28)
[2020-11-26 06:32] LABS: CK-MB VALUE MASS 11.3 NG/ML (<3.6); MB/CK RELATIVE INDEX 8.31 (< OR =4); TROPONIN I 0.25 NG/ML (< 0.10)
[2020-11-26 06:36] LABS: ALBUMIN 2.7 GM/DL (3.2-5.2); CALCIUM LEVEL 8.4 MG/DL (8.8-10.2); CK-MB VALUE MASS 12.7 NG/ML (<3.6); CREATININE FOR GFR 1.63 MG/DL (0.70-1.30); GLOMERULAR FILTRATION RATE 44.1 (>42); MB/CK RELATIVE INDEX 9.92 (< OR =4); PHOSPHORUS LEVEL 2.9 MG/DL (2.5-4.9); POTASSIUM SERUM 3.5 MEQ/L (3.5-5.1); TROPONIN I 0.24 NG/ML (< 0.10)
[2020-11-26 08:00] VITALS: BP 94/57
[2020-11-26] MEDS: THIAMINE 100 MG TAB PO SCH ×2 (08:12→20:14)
[2020-11-26] MEDS: FOLIC ACID 1 MG TAB PO SCH (08:12)
[2020-11-26] MEDS: MULTIVITAMINS/MINERALS THERAP 1 TAB PO SCH (08:12)
[2020-11-26] MEDS: VENLAFAXINE **XR** 75MG CAPSULE PO SCH (08:12)
[2020-11-26] MEDS: buPROPion **XL** TABLET 150MG (WELLBUTRIN XL) PO SCH (08:15)
[2020-11-26] MEDS: LR 1,000 ML IV SCH (08:15)
[2020-11-26] MEDS ORDERED: ENOXAPARIN 40MG/0.4ML SYRINGE (J1650 PER 10MG) SC SCH (09:00)
[2020-11-26] MEDS ORDERED: ATORVASTATIN 20 MG TAB PO SCH (09:00)
[2020-11-26 09:13] LABS: AMPHETAMINES LEVEL URINE NEGATIVE (NEGATIVE); BARBITURATES URINE NEGATIVE (NEGATIVE); BENZODIAZEPINES URINE NEGATIVE (NEGATIVE); CANNABINOIDS URINE NEGATIVE (NEGATIVE); COCAINE METABOLITE URINE NEGATIVE (NEGATIVE); METHADONE URINE NEGATIVE (NEGATIVE); OPIATES URINE NEGATIVE (NEGATIVE); PHENCYCLIDINE URINE NEGATIVE (NEGATIVE); SODIUM,RANDOM URINE 27 MEQ/L
[2020-11-26] MEDS ORDERED: FLUBLOK(EGG FREE)(QUAD)INFLUENZA VACC 0.5ML SYRINGE 18YRS & OLDER IM ONE (10:00)
[2020-11-26 10:30] VITALS: BP 90/60
[2020-11-26] MEDS ORDERED: NS 1,000 ML IV ONE (11:05)
[2020-11-26 12:00] VITALS: BP 119/75
[2020-11-26] MEDS: ASPIRIN 81MG ENTERIC TABLET PO SCH (12:11)
[2020-11-26] MEDS: APIXABAN 2.5 MG TAB (ELIQUIS) PO SCH ×2 (12:11→20:13)
[2020-11-26] MEDS: OMEPRAZOLE 20MG CAP PO SCH (12:11)
[2020-11-26 15:54] LABS: CK-MB VALUE MASS 10.2 NG/ML (<3.6); MB/CK RELATIVE INDEX 7.79 (< OR =4); TROPONIN I 0.14 NG/ML (< 0.10)
[2020-11-26 16:00] VITALS: BP 113/62
[2020-11-26 20:00] VITALS: BP 109/74
[2020-11-26] MEDS ORDERED: SIMVASTATIN 40 MG TAB PO SCH (21:00)
[2020-11-27] VITALS (8 sets, daily range): BP systolic 126–170; BP diastolic 69–94
[2020-11-27] MEDS: LEVOTHYROXINE 50MCG TABLET (0.05MG) PO SCH (05:28)
[2020-11-27 05:33] LABS: HEMATOCRIT 36.3 % (42.0-52.0); MEAN CORPUSCULAR HEMOGLOBIN 30.2 pg (27.0-33.0); MEAN CORPUSCULAR HGB CONC 34.2 g/dl (32.0-36.5); MEAN CORPUSCULAR VOLUME 88.3 fl (80.0-96.0); PLATELET COUNT, AUTOMATED 247 10^3/uL (150-450); RED BLOOD COUNT 4.11 10^6/uL (4.30-6.10); WHITE BLOOD COUNT 8.3 10^3/uL (4.0-10.0)
[2020-11-27 05:34] LABS: HEMOGLOBIN 12.4 g/dl (13.5-17.5)
[2020-11-27 05:57] LABS: ALBUMIN 2.6 GM/DL (3.2-5.2); BLOOD UREA NITROGEN 23 MG/DL (7-18); CALCIUM LEVEL 8.1 MG/DL (8.8-10.2); CARBON DIOXIDE LEVEL 27 MEQ/L (21-32); CHLORIDE LEVEL 107 MEQ/L (98-107); CHOLESTEROL LEVEL 145 MG/DL (<200); CHOLESTEROL RISK RATIO 2.735 (<5); CK-MB VALUE MASS 7.4 NG/ML (<3.6); CPK CREATINE PHOSPHOKINASE 92 U/L (39-308); GLOMERULAR FILTRATION RATE > 60.0 (>42); GLUCOSE, FASTING 94 MG/DL (70-100); HDL CHOLESTEROL 53 MG/DL (>40); LDL CHOLESTEROL 70 MG/DL (<100); MAGNESIUM LEVEL 1.7 MG/DL (1.8-2.4); MB/CK RELATIVE INDEX 8.04 (< OR =4); NON-HDL-C 92 MG/DL; PHOSPHORUS LEVEL 2.4 MG/DL (2.5-4.9); POTASSIUM SERUM 3.4 MEQ/L (3.5-5.1); SODIUM LEVEL 142 MEQ/L (136-145); TRIGLYCERIDES LEVEL 110 MG/DL (<150)
[2020-11-27] MEDS ORDERED: MAG SULF 1GM/100ML (MAG RUN) 1 GM in IV 1 EA IV ONE ×2 (07:00→08:00)
[2020-11-27] MEDS ORDERED: ELIQ2.5T PO (07:46)
[2020-11-27] MEDS ORDERED: OMEP-173 PO (07:46)
[2020-11-27] MEDS ORDERED: POTASSIUM CHLORIDE 10MEQ SR TABLET PO ONE ×2 (08:00→10:00)
[2020-11-27] MEDS: OMEPRAZOLE 20MG CAP PO SCH (09:34)
[2020-11-27] MEDS: buPROPion **XL** TABLET 150MG (WELLBUTRIN XL) PO SCH (09:35)
[2020-11-27] MEDS: NEUTRA-PHOS 1.5 GM PACKET PO SCH ×2 (09:35→16:26)
[2020-11-27] MEDS: MULTIVITAMINS/MINERALS THERAP 1 TAB PO SCH (09:36)
[2020-11-27] MEDS: ASPIRIN 81MG ENTERIC TABLET PO SCH (09:36)
[2020-11-27] MEDS: FOLIC ACID 1 MG TAB PO SCH (09:36)
[2020-11-27] MEDS: VENLAFAXINE **XR** 75MG CAPSULE PO SCH (09:36)
[2020-11-27] MEDS: APIXABAN 2.5 MG TAB (ELIQUIS) PO SCH (09:37)
[2020-11-27] MEDS: THIAMINE 100 MG TAB PO SCH (09:37)
[2020-11-27] MEDS ORDERED: METO1TAB87 PO (14:26)
[2020-11-27] MEDS ORDERED: SELF1KIT MC (14:28)
[2020-11-27] MEDS ORDERED: SIMV40TA20 PO (14:38)
[2020-11-27] MEDS ORDERED: ASPI-551 PO (14:38)
[2020-11-27] MEDS ORDERED: METOPROLOL TART 12.5 MG PER 1/2 TAB PO ONE (14:45)
[2020-11-27 14:52] LABS: CK-MB VALUE MASS 9.3 NG/ML (<3.6); MB/CK RELATIVE INDEX 6.12 (< OR =4); TROPONIN I 0.06 NG/ML (< 0.10)
[2020-11-28] MEDS ORDERED: METOPROLOL TART 12.5 MG PER 1/2 TAB PO SCH (09:00)
== END 2020-11-27 21:00 | disposition home health service (06) | DRG 682 ==
LOC: EDBD 16:06 → M ED 16:06 → M ED INP 19:28 → M PCU 19:28 → ENRESERV 23:10 → M PCU 11-26 06:05
PROVIDERS: ADMIT Internal Medicine; ATTEND General Practice
DX: N17.9 Acute kidney failure, unspecified (principal); I21.4 Non-ST elevation (NSTEMI) myocardial infarction; I48.92 Unspecified atrial flutter; Z68.1 Body mass index [BMI] 19.9 or less, adult; F32.9 Major depressive disorder, single episode, unspecified; E03.9 Hypothyroidism, unspecified; I95.9 Hypotension, unspecified; Z79.899 Other long term (current) drug therapy; Z88.0 Allergy status to penicillin

== ENCOUNTER → 2020-12-07 | Outpatient (REF) | payer MEDICARE ==
[~2020-12-07] MED LIST changes: +ASPI-551 PO; +BUPR150T12 PO; +ELIQ2.5T PO; +LEVO50TA5 PO; +METO1TAB87 PO; +OMEP-218 PO; +SELF1KIT MC; +SIMV40TA20 PO; +VENL75CA47 PO
== END ==
LOC: M SFHCADAM 15:06
PROVIDERS: ATTEND Physician Assistant
DX: Z00.00 Encounter for general adult medical examination without abnormal findings (principal)
CPT/HCPCS: 86580; 99495; U0003

== ENCOUNTER → 2021-01-08 | Outpatient (REF) | payer MEDICARE ==
[2021-01-08 12:52] LABS: BASO # 0.1 10^3/uL (0.0-0.2); BASO % 0.6 % (0.0-1.0); EOS # 1.1 10^3/uL (0.0-0.5); EOS % 12.2 % (0.0-3.0); HEMATOCRIT 32.6 % (42.0-52.0); HEMOGLOBIN 10.5 g/dl (13.5-17.5); LYMPH # 1.9 10^3/uL (1.5-5.0); LYMPH % 19.8 % (24.0-44.0); MEAN CORPUSCULAR HGB CONC 32.2 g/dl (32.0-36.5); MEAN CORPUSCULAR VOLUME 93.1 fl (80.0-96.0); MONO % 11.1 % (2.0-8.0); NEUTROPHILS # 5.2 10^3/uL (1.5-8.5); NEUTROPHILS % 55.8 % (36.0-66.0); PLATELET COUNT, AUTOMATED 281 10^3/uL (150-450); WHITE BLOOD COUNT 9.3 10^3/uL (4.0-10.0)
[2021-01-08 14:07] LABS: ALBUMIN 3.3 GM/DL (3.2-5.2); ALT/SGPT 26 U/L (12-78); BILIRUBIN,TOTAL 0.4 MG/DL (0.2-1.0); BLOOD UREA NITROGEN 28 MG/DL (7-18); CALCIUM LEVEL 9.1 MG/DL (8.8-10.2); CARBON DIOXIDE LEVEL 30 MEQ/L (21-32); CHLORIDE LEVEL 103 MEQ/L (98-107); CREATININE FOR GFR 0.92 MG/DL (0.70-1.30); FREE T4 1.06 NG/DL (0.76-1.46); GLOMERULAR FILTRATION RATE > 60.0 (>42); GLUCOSE, FASTING 111 MG/DL (70-100); POTASSIUM SERUM 4.8 MEQ/L (3.5-5.1); SODIUM LEVEL 139 MEQ/L (136-145); TOTAL PROTEIN 6.6 GM/DL (6.4-8.2)
[2021-01-08 14:09] LABS: TOTAL 25(OH) VITAMIN D 23.9 NG/ML (30.0-100.0)
== END ==
LOC: M SFHCADAM 10:01
PROVIDERS: ATTEND Physician Assistant Medical
DX: E03.9 Hypothyroidism, unspecified (principal); R29.6 Repeated falls; E78.2 Mixed hyperlipidemia; F33.2 Major depressive disorder, recurrent severe without psychotic features; K21.9 Gastro-esophageal reflux disease without esophagitis; Z79.899 Other long term (current) drug therapy

== ENCOUNTER → 2021-01-08 | Outpatient (CLI) | payer MEDICARE ==
--- NOTE | 2021-01-08 11:47 | REP ---
INDICATION: PAIN IN LT HAND. COMPARISON: None. TECHNIQUE: Four views FINDINGS: There is mild rather symmetric appearing joint space narrowing. There is no acute fracture, dislocation, or subluxation. Degenerative changes are seen involving the wrist. IMPRESSION: No acute osseous abnormality. <Electronically signed by Jasmeet Chavez > 01/08/21 8212
== END ==
LOC: M ADAMS 10:30
PROVIDERS: ATTEND Physician Assistant Medical
DX: M79.642 Pain in left hand (principal); E03.9 Hypothyroidism, unspecified; R29.6 Repeated falls; E78.2 Mixed hyperlipidemia; F33.2 Major depressive disorder, recurrent severe without psychotic features; K21.9 Gastro-esophageal reflux disease without esophagitis; Z79.899 Other long term (current) drug therapy

== ENCOUNTER → 2021-02-17 | Outpatient (REF) | payer MEDICARE ==
[~2021-02-17] MED LIST changes: +OMEP-173 PO; -OMEP-218 PO
[2021-02-17 12:34] LABS: BASO % 0.5 % (0.0-1.0); EOS # 0.4 10^3/uL (0.0-0.5); HEMATOCRIT 39.1 % (42.0-52.0); HEMOGLOBIN 12.4 g/dl (13.5-17.5); LYMPH # 1.8 10^3/uL (1.5-5.0); LYMPH % 24.6 % (24.0-44.0); MEAN CORPUSCULAR HEMOGLOBIN 30.2 pg (27.0-33.0); MEAN CORPUSCULAR HGB CONC 31.7 g/dl (32.0-36.5); MEAN CORPUSCULAR VOLUME 95.1 fl (80.0-96.0); MONO # 0.7 10^3/uL (0.0-0.8); MONO % 9.4 % (2.0-8.0); NEUTROPHILS # 4.5 10^3/uL (1.5-8.5); NEUTROPHILS % 60.2 % (36.0-66.0); PLATELET COUNT, AUTOMATED 315 10^3/uL (150-450); RED BLOOD COUNT 4.11 10^6/uL (4.30-6.10); WHITE BLOOD COUNT 7.5 10^3/uL (4.0-10.0)
[2021-02-17 13:12] LABS: PERCENT SATURATION 27.4 % (19.7-50.0); THYROID STIMULATING HORMONE 8.47 uIU/ML (0.358-3.740)
[2021-02-17 13:20] LABS: FOLATE 22.9 NG/ML
== END ==
PROVIDERS: ATTEND Physician Assistant Medical
DX: D64.9 Anemia, unspecified (principal); E03.9 Hypothyroidism, unspecified

== ENCOUNTER → 2021-10-07 | Outpatient (REF) | payer MEDICARE ==
[2021-10-07 17:03] LABS: BASO % 0.5 % (0.0-1.0); EOS # 0.7 10^3/uL (0.0-0.5); EOS % 8.7 % (0.0-3.0); HEMATOCRIT 39.5 % (42.0-52.0); HEMOGLOBIN 12.8 g/dl (13.5-17.5); LYMPH # 1.8 10^3/uL (1.5-5.0); LYMPH % 22.5 % (24.0-44.0); MEAN CORPUSCULAR HEMOGLOBIN 30.8 pg (27.0-33.0); MEAN CORPUSCULAR HGB CONC 32.4 g/dl (32.0-36.5); MONO # 0.8 10^3/uL (0.0-0.8); MONO % 10.4 % (2.0-8.0); NEUTROPHILS # 4.5 10^3/uL (1.5-8.5); NEUTROPHILS % 57.8 % (36.0-66.0); PLATELET COUNT, AUTOMATED 295 10^3/uL (150-450); RED BLOOD COUNT 4.16 10^6/uL (4.30-6.10); WHITE BLOOD COUNT 7.8 10^3/uL (4.0-10.0)
[2021-10-07 17:57] LABS: ALBUMIN 3.5 GM/DL (3.2-5.2); BILIRUBIN,TOTAL 0.3 MG/DL (0.2-1.0); CALCIUM LEVEL 9.3 MG/DL (8.8-10.2); CHOLESTEROL RISK RATIO 3.684 (<5); CREATININE FOR GFR 1.48 MG/DL (0.70-1.30); FREE T4 1.28 NG/DL (0.76-1.46); GLOMERULAR FILTRATION RATE 49.2 (>42); POTASSIUM SERUM 4.6 MEQ/L (3.5-5.1); THYROID STIMULATING HORMONE 2.26 uIU/ML (0.358-3.740); TOTAL PROTEIN 6.6 GM/DL (6.4-8.2)
[2021-10-07 18:30] LABS: TOTAL 25(OH) VITAMIN D 38.6 NG/ML (30.0-100.0)
== END ==
LOC: M SFHCADAM 10:19
PROVIDERS: ATTEND Family Medicine
DX: E78.2 Mixed hyperlipidemia (principal); E03.9 Hypothyroidism, unspecified; K21.9 Gastro-esophageal reflux disease without esophagitis; Z79.899 Other long term (current) drug therapy

== ENCOUNTER → 2022-03-30 | Outpatient (REF) | payer MEDICARE ==
[2022-03-30 12:44] LABS: BASO # 0.1 10^3/uL (0.0-0.2); BASO % 0.6 % (0.0-1.0); EOS # 0.4 10^3/uL (0.0-0.5); EOS % 4.7 % (0.0-3.0); HEMATOCRIT 37.8 % (42.0-52.0); HEMOGLOBIN 12.1 g/dl (13.5-17.5); LYMPH % 25.4 % (24.0-44.0); MEAN CORPUSCULAR HEMOGLOBIN 30.7 pg (27.0-33.0); MEAN CORPUSCULAR VOLUME 95.9 fl (80.0-96.0); MONO # 0.9 10^3/uL (0.0-0.8); MONO % 11.9 % (2.0-8.0); NEUTROPHILS # 4.5 10^3/uL (1.5-8.5); NEUTROPHILS % 56.9 % (36.0-66.0); PLATELET COUNT, AUTOMATED 328 10^3/uL (150-450); RED BLOOD COUNT 3.94 10^6/uL (4.30-6.10); WHITE BLOOD COUNT 7.9 10^3/uL (4.0-10.0)
[2022-03-30 13:19] LABS: ALBUMIN 3.3 G/DL (3.2-5.2); BILIRUBIN,TOTAL 0.4 MG/DL (0.3-1.2); CHOLESTEROL RISK RATIO 2.89 (<5); CREATININE FOR GFR 1.5 MG/DL (0.70-1.30); GLOMERULAR FILTRATION RATE 48.4 (>42); HDL CHOLESTEROL 41.5 MG/DL (>40); LDL CHOLESTEROL 42.3 MG/DL (<100); TOTAL PROTEIN 6.3 G/DL (5.7-8.2)
[2022-03-30 13:21] LABS: THYROID STIMULATING HORMONE 1.748 uIU/ML (0.55-4.78)
[2022-03-30 13:22] LABS: TOTAL 25(OH) VITAMIN D 41.4 NG/ML (20.0-100.0)
== END ==
LOC: M SFHCADAM 10:33
PROVIDERS: ATTEND Physician Assistant Medical
DX: R09.81 Nasal congestion (principal); E78.2 Mixed hyperlipidemia; E03.9 Hypothyroidism, unspecified; K21.9 Gastro-esophageal reflux disease without esophagitis; I48.92 Unspecified atrial flutter; Z79.899 Other long term (current) drug therapy

== ENCOUNTER 2022-05-20 01:23 | Emergency (ER) | payer MEDICARE ==
[~2022-05-20] VITALS: Ht 185.4 cm; Wt 69.5 kg
[2022-05-20] MEDS ORDERED: BOOSTRIX/ADACEL VACCINE (DIPHTH/PERTUSS/ACELL/TETANUS) 0.5ML SYR IM.IMMUN ONE (01:35)
[2022-05-20 01:58] LABS: BASO # 0.1 10^3/uL (0.0-0.2); BASO % 0.7 % (0.0-1.0); EOS # 0.4 10^3/uL (0.0-0.5); HEMATOCRIT 37.6 % (42.0-52.0); HEMOGLOBIN 12.3 g/dl (13.5-17.5); LYMPH # 2.2 10^3/uL (1.5-5.0); LYMPH % 21.3 % (24.0-44.0); MEAN CORPUSCULAR HEMOGLOBIN 30.8 pg (27.0-33.0); MEAN CORPUSCULAR HGB CONC 32.7 g/dl (32.0-36.5); MONO # 1.2 10^3/uL (0.0-0.8); MONO % 11.9 % (2.0-8.0); NEUTROPHILS # 6.3 10^3/uL (1.5-8.5); NEUTROPHILS % 61.8 % (36.0-66.0); PLATELET COUNT, AUTOMATED 330 10^3/uL (150-450); WHITE BLOOD COUNT 10.2 10^3/uL (4.0-10.0)
[2022-05-20 02:09] LABS: INR 1.16
[2022-05-20 02:10] LABS: PARTIAL THROMBOPLASTIN TIME 30.3 SECONDS (24.8-34.2)
[2022-05-20 02:18] LABS: BLOOD UREA NITROGEN 46 MG/DL (9-23); CALCIUM LEVEL 8.8 MG/DL (8.3-10.6); CARBON DIOXIDE LEVEL 29 MMOL/L (20-31); CHLORIDE LEVEL 102 MMOL/L (98-107); CREATININE FOR GFR 1.23 MG/DL (0.70-1.30); GLOMERULAR FILTRATION RATE > 60.0 (>42); GLUCOSE, FASTING 101 MG/DL (74-106); POTASSIUM SERUM 4.3 MMOL/L (3.5-5.1); SODIUM LEVEL 139 MMOL/L (136-145)
[2022-05-20 02:40] VITALS: BP 152/78
[2022-05-20] MEDS ORDERED: ACETAMINOPHEN TAB 650MG DOSE (2X325MG) PO ONE (03:20)
[2022-05-20] MEDS ORDERED: BACITRACIN OINTMENT 30GM TUBE TOP ONE (03:25)
== END 2022-05-20 03:50 | disposition home or self-care (01) ==
LOC: EDBD 01:23 → M ED 01:23
DX: S50.311A Abrasion of right elbow, initial encounter (principal); S80.211A Abrasion, right knee, initial encounter; W18.12XA Fall from or off toilet with subsequent striking against object, initial encounter; I49.1 Atrial premature depolarization; E03.9 Hypothyroidism, unspecified; N18.30 Chronic kidney disease, stage 3 unspecified; K21.9 Gastro-esophageal reflux disease without esophagitis; F32.A Depression, unspecified; Z88.0 Allergy status to penicillin; Z79.01 Long term (current) use of anticoagulants; Z79.82 Long term (current) use of aspirin; Z79.899 Other long term (current) drug therapy; Z23 Encounter for immunization

== ENCOUNTER → 2022-08-22 | Outpatient (REF) | payer MEDICARE ==
[2022-08-22 11:32] LABS: BASO # 0.1 10^3/uL (0.0-0.2); BASO % 0.7 % (0.0-1.0); EOS # 0.4 10^3/uL (0.0-0.5); EOS % 5.2 % (0.0-3.0); HEMATOCRIT 39.8 % (42.0-52.0); HEMOGLOBIN 12.9 g/dl (13.5-17.5); LYMPH # 1.7 10^3/uL (1.5-5.0); LYMPH % 22.1 % (24.0-44.0); MEAN CORPUSCULAR HEMOGLOBIN 30.7 pg (27.0-33.0); MEAN CORPUSCULAR HGB CONC 32.4 g/dl (32.0-36.5); MEAN CORPUSCULAR VOLUME 94.8 fl (80.0-96.0); MONO # 0.9 10^3/uL (0.0-0.8); NEUTROPHILS # 4.5 10^3/uL (1.5-8.5); NEUTROPHILS % 59.7 % (36.0-66.0); PLATELET COUNT, AUTOMATED 288 10^3/uL (150-450); WHITE BLOOD COUNT 7.5 10^3/uL (4.0-10.0)
[2022-08-22 11:44] LABS: HEMOGLOBIN A1c 5.8 % (4.0-6.0)
[2022-08-22 12:03] LABS: ERYTHROCYTE SEDIMENTATION RATE 27 mm/hr (0-20); FOLATE > 24.0 NG/ML (>5.4); THYROID STIMULATING HORMONE 1.601 uIU/ML (0.55-4.78); VITAMIN B12 LEVEL 533 PG/ML (211-911)
[2022-08-22 12:04] LABS: ALBUMIN 3.5 G/DL (3.2-5.2); ALKALINE PHOSPHATASE 116 U/L (46-116); ALT/SGPT 26 U/L (7.0-40); AST/SGOT 16 U/L (<34); BILIRUBIN,TOTAL 0.4 MG/DL (0.3-1.2); BLOOD UREA NITROGEN 31 MG/DL (9-23); CALCIUM LEVEL 9.1 MG/DL (8.3-10.6); CARBON DIOXIDE LEVEL 30 MMOL/L (20-31); CHLORIDE LEVEL 105 MMOL/L (98-107); CREATININE FOR GFR 1.41 MG/DL (0.70-1.30); GLOMERULAR FILTRATION RATE 51.9 (>42); GLUCOSE, FASTING 82 MG/DL (74-106); POTASSIUM SERUM 4.9 MMOL/L (3.5-5.1); SODIUM LEVEL 139 MMOL/L (136-145); TOTAL PROTEIN 6.3 G/DL (5.7-8.2)
[2022-08-27 09:10] LABS: ANTINUCLEAR ANTIBODIES DIRECT Negative (Negative); VITAMIN B1 LEVEL WHOLE BLOOD 174.5 nmol/L (66.5-200.0); VITAMIN B6,PYRIDOXAL PHOSPHATE 14.8 ug/L (3.4-65.2); VITAMIN E(ALPHA TOCOPHEROL) 14.8 mg/L (9.0-29.0)
== END ==
PROVIDERS: ATTEND Psychiatry & Neurology Neurology
DX: G62.9 Polyneuropathy, unspecified (principal); Z79.899 Other long term (current) drug therapy

== ENCOUNTER → 2022-11-07 | Outpatient (REF) | payer MEDICARE ==
[2022-11-07 08:20] LABS: BASO % 0.4 % (0.0-1.0); EOS # 0.5 10^3/uL (0.0-0.5); EOS % 4.9 % (0.0-3.0); HEMATOCRIT 38.7 % (42.0-52.0); HEMOGLOBIN 12.6 g/dl (13.5-17.5); MEAN CORPUSCULAR HEMOGLOBIN 30.3 pg (27.0-33.0); MEAN CORPUSCULAR HGB CONC 32.6 g/dl (32.0-36.5); MONO # 1.1 10^3/uL (0.0-0.8); MONO % 11.5 % (2.0-8.0); NEUTROPHILS # 5.6 10^3/uL (1.5-8.5); NEUTROPHILS % 60.9 % (36.0-66.0); PLATELET COUNT, AUTOMATED 274 10^3/uL (150-450); RED BLOOD COUNT 4.16 10^6/uL (4.30-6.10); WHITE BLOOD COUNT 9.3 10^3/uL (4.0-10.0)
[2022-11-07 09:26] LABS: ALBUMIN 3.4 G/DL (3.2-5.2); ALKALINE PHOSPHATASE 114 U/L (46-116); ALT/SGPT 27 U/L (7.0-40); AST/SGOT 17 U/L (<34); BILIRUBIN,TOTAL 0.3 MG/DL (0.3-1.2); BLOOD UREA NITROGEN 36 MG/DL (9-23); CALCIUM LEVEL 9.3 MG/DL (8.3-10.6); CARBON DIOXIDE LEVEL 30 MMOL/L (20-31); CHLORIDE LEVEL 102 MMOL/L (98-107); CREATININE FOR GFR 1.32 MG/DL (0.70-1.30); FOLATE > 24.0 NG/ML (>5.4); GLUCOSE, FASTING 113 MG/DL (74-106); PHOSPHORUS LEVEL 3.2 MG/DL (2.4-5.1); POTASSIUM SERUM 4.6 MMOL/L (3.5-5.1); SODIUM LEVEL 136 MMOL/L (136-145); THYROID STIMULATING HORMONE 2.964 uIU/ML (0.55-4.78); TOTAL PROTEIN 6.7 G/DL (5.7-8.2); VITAMIN B12 LEVEL 501 PG/ML (211-911)
[2022-11-07 09:39] LABS: ERYTHROCYTE SEDIMENTATION RATE 25 mm/hr (0-20)
[2022-11-07 09:49] LABS: HEMOGLOBIN A1c 5.8 % (4.0-6.0)
[2022-11-10 23:07] LABS: ANTINUCLEAR ANTIBODIES DIRECT Negative (Negative); VITAMIN B1 LEVEL WHOLE BLOOD 164.5 nmol/L (66.5-200.0); VITAMIN B6,PYRIDOXAL PHOSPHATE 22.2 ug/L (3.4-65.2); VITAMIN E(GAMMA TOCOPHEROL) 1.1 mg/L (0.5-4.9)
== END ==
PROVIDERS: ATTEND Psychiatry & Neurology Neurology
DX: R29.818 Other symptoms and signs involving the nervous system (principal); Z79.899 Other long term (current) drug therapy

== ENCOUNTER → 2023-03-28 | Outpatient (CLI) | payer MEDICARE, MEDICAID | LOC: M SLEEP 07:55 | PROVIDERS: ATTEND Psychiatry & Neurology Neurology | DX: G25.3 Myoclonus (principal) ==

== ENCOUNTER → 2023-04-03 | Outpatient (REF) | payer MEDICARE ==
[2023-04-03 15:02] LABS: ALBUMIN 3.3 G/DL (3.2-5.2); BILIRUBIN,TOTAL 0.3 MG/DL (0.3-1.2); CALCIUM LEVEL 9.9 MG/DL (8.3-10.6); CHOLESTEROL RISK RATIO 2.91 (<5); CREATININE FOR GFR 1.61 MG/DL (0.70-1.30); GLOMERULAR FILTRATION RATE 44.5 (>42); LDL CHOLESTEROL 61.2 MG/DL (<100); POTASSIUM SERUM 5.2 MMOL/L (3.5-5.1); TOTAL PROTEIN 6.4 G/DL (5.7-8.2)
[2023-04-03 15:06] LABS: TOTAL 25(OH) VITAMIN D 59.1 NG/ML (20.0-100.0)
[2023-04-03 15:07] LABS: THYROID STIMULATING HORMONE 5.852 uIU/ML (0.55-4.78)
[2023-04-03 15:25] LABS: HEMOGLOBIN A1c 5.9 % (4.0-6.0)
== END ==
LOC: M SFHCADAM 10:00
PROVIDERS: ATTEND Physician Assistant Medical
DX: I25.10 Atherosclerotic heart disease of native coronary artery without angina pectoris (principal); N18.31 Chronic kidney disease, stage 3a; E78.2 Mixed hyperlipidemia; E03.9 Hypothyroidism, unspecified; K21.9 Gastro-esophageal reflux disease without esophagitis; Z79.899 Other long term (current) drug therapy

== ENCOUNTER → 2023-05-15 | Outpatient (REF) | payer MEDICARE ==
[2023-05-15 11:14] LABS: FREE T4 1.29 NG/DL (0.89-1.76)
[2023-05-15 11:15] LABS: THYROID STIMULATING HORMONE 3.215 uIU/ML (0.55-4.78)
== END ==
PROVIDERS: ATTEND Physician Assistant Medical
DX: E03.9 Hypothyroidism, unspecified (principal)

== ENCOUNTER 2023-10-30 08:04 | Observation (INO) | payer MEDICARE ==
[~2023-10-30] VITALS: Ht 185.4 cm; Wt 70.0 kg
[2023-10-30 08:32] LABS: BASO % 0.5 % (0.0-1.0); EOS # 0.2 10^3/uL (0.0-0.5); EOS % 2.8 % (0.0-3.0); HEMATOCRIT 42.8 % (42.0-52.0); HEMOGLOBIN 14.1 g/dl (13.5-17.5); LYMPH # 1.9 10^3/uL (1.5-5.0); LYMPH % 24.6 % (24.0-44.0); MEAN CORPUSCULAR HEMOGLOBIN 31.1 pg (27.0-33.0); MEAN CORPUSCULAR HGB CONC 32.9 g/dl (32.0-36.5); MEAN CORPUSCULAR VOLUME 94.5 fl (80.0-96.0); MONO # 0.9 10^3/uL (0.0-0.8); MONO % 11.1 % (2.0-8.0); NEUTROPHILS # 4.7 10^3/uL (1.5-8.5); NEUTROPHILS % 60.9 % (36.0-66.0); PLATELET COUNT, AUTOMATED 243 10^3/uL (150-450); RED BLOOD COUNT 4.53 10^6/uL (4.30-6.10); WHITE BLOOD COUNT 7.7 10^3/uL (4.0-10.0)
[2023-10-30] MEDS: LIDOCAINE W/EPINEPHRINE 1% 20ML VIAL SC ONE (08:55)
[2023-10-30 09:00] LABS: CREATININE FOR GFR 1.3 MG/DL (0.70-1.30); GLOMERULAR FILTRATION RATE 56.8 (>42); POTASSIUM SERUM 4.6 MMOL/L (3.5-5.1)
[2023-10-30] MEDS: LEVOTHYROXINE 88MCG TABLET (0.088 MG) PO SCH (09:00)
[2023-10-30] MEDS ORDERED: LEVE500T5 PO (10:18)
[2023-10-30] MEDS ORDERED: ROPI5TAB19 PO (10:18)
[2023-10-30] MEDS ORDERED: KETO2SHA8 TOP (10:18)
[2023-10-30] MEDS ORDERED: METO25TA4 PO (10:18)
[2023-10-30] MEDS ORDERED: ACET-839 PO (10:18)
[2023-10-30] MEDS ORDERED: ENSULIQ9 PO (10:18)
[2023-10-30] MEDS ORDERED: OMEP1CAP73 PO (10:18)
[2023-10-30] MEDS ORDERED: SIMV40TA20 PO (10:18)
[2023-10-30] MEDS ORDERED: LEVO88TA3 PO (10:18)
[2023-10-30] MEDS ORDERED: ELIQ5TAB PO (10:18)
[2023-10-30] MEDS ORDERED: VITA200030 PO (10:18)
[2023-10-30] MEDS ORDERED: HOME MED LIST COMPLETE! XX SCH (10:20)
[2023-10-30] MEDS: ACETAMINOPHEN 500 MG TAB PO ONE (10:50)
[2023-10-30] MEDS: KETOROLAC 30 MG/ML 1ML VIAL IV ONE (10:51)
[2023-10-30 13:53] VITALS: BP 129/68; TEMP 98.6; O2SAT 97
[2023-10-30] MEDS: NS 1,000 ML IV SCH (14:33)
[2023-10-30] MEDS: APIXABAN 5 MG TAB (ELIQUIS) PO SCH (14:38)
[2023-10-30] MEDS: METOPROLOL TART 12.5 MG PER 1/2 TAB PO SCH (14:39)
[2023-10-30] MEDS: OMEPRAZOLE 20MG CAP PO SCH (14:39)
[2023-10-30] MEDS ORDERED: ISOVUE-370 76% 100ML VIAL As Ordered ONE (15:07)
[2023-10-30] MEDS: buPROPion **XL** TABLET 150MG (WELLBUTRIN XL) PO SCH (16:25)
[2023-10-30] MEDS: rOPINIRole 0.25 MG TAB(REQUIP) PO SCH (16:25)
[2023-10-30] MEDS: VENLAFAXINE **XR** 75MG CAPSULE PO SCH (16:25)
[2023-10-30 20:00] VITALS: BP 130/87; TEMP 98.8; O2SAT 97
[2023-10-30] MEDS: levETIRAcetam 250MG TABLET (KEPPRA) PO SCH (20:37)
[2023-10-30] MEDS: SIMVASTATIN 40 MG TAB PO SCH (20:37)
[2023-10-31 04:00] VITALS: BP 115/80; TEMP 98.2; O2SAT 98
[2023-10-31 06:15] LABS: BASO % 0.5 % (0.0-1.0); EOS # 0.1 10^3/uL (0.0-0.5); EOS % 1.7 % (0.0-3.0); HEMOGLOBIN 12.7 g/dl (13.5-17.5); LYMPH # 1.7 10^3/uL (1.5-5.0); LYMPH % 20.6 % (24.0-44.0); MEAN CORPUSCULAR HEMOGLOBIN 30.8 pg (27.0-33.0); MEAN CORPUSCULAR HGB CONC 32.6 g/dl (32.0-36.5); MEAN CORPUSCULAR VOLUME 94.4 fl (80.0-96.0); MONO # 0.9 10^3/uL (0.0-0.8); MONO % 11.3 % (2.0-8.0); NEUTROPHILS # 5.4 10^3/uL (1.5-8.5); NEUTROPHILS % 65.7 % (36.0-66.0); PLATELET COUNT, AUTOMATED 229 10^3/uL (150-450); RED BLOOD COUNT 4.13 10^6/uL (4.30-6.10); WHITE BLOOD COUNT 8.2 10^3/uL (4.0-10.0)
[2023-10-31 06:34] LABS: CALCIUM LEVEL 8.3 MG/DL (8.3-10.6); CREATININE FOR GFR 1.58 MG/DL (0.70-1.30); GLOMERULAR FILTRATION RATE 45.4 (>42); MAGNESIUM LEVEL 1.8 MG/DL (1.8-2.4); POTASSIUM SERUM 4.4 MMOL/L (3.5-5.1)
[2023-10-31 12:00] VITALS: BP 133/78; TEMP 98.6; O2SAT 96
[2023-10-31 16:21] LABS: PSA SCREENING 2.06 NG/ML (< 4.00)
[2023-10-31 21:09] VITALS: BP 122/72; TEMP 99.1; O2SAT 94
[2023-10-31] MEDS: ACETAMINOPHEN 500 MG TAB PO PRN (22:57)
[2023-11-01 05:00] VITALS: BP 125/82; TEMP 98.1; O2SAT 98
[2023-11-01 08:48] LABS: HEMATOCRIT 39.7 % (42.0-52.0); HEMOGLOBIN 13.1 g/dl (13.5-17.5); MEAN CORPUSCULAR HEMOGLOBIN 30.8 pg (27.0-33.0); MEAN CORPUSCULAR VOLUME 93.4 fl (80.0-96.0); PLATELET COUNT, AUTOMATED 217 10^3/uL (150-450); RED BLOOD COUNT 4.25 10^6/uL (4.30-6.10); WHITE BLOOD COUNT 8.1 10^3/uL (4.0-10.0)
[2023-11-01 09:14] LABS: CALCIUM LEVEL 9.1 MG/DL (8.3-10.6); CREATININE FOR GFR 1.44 MG/DL (0.70-1.30); GLOMERULAR FILTRATION RATE 50.5 (>42); POTASSIUM SERUM 4.4 MMOL/L (3.5-5.1)
[2023-11-01 09:31] VITALS: BP 126/81
[2023-11-01 12:05] VITALS: BP 127/81; TEMP 98.1; O2SAT 95
== END 2023-11-01 13:48 | disposition home or self-care (01) ==
LOC: M ED 08:04 → EDBD 08:04 → INTOOBSV 09:35 → M ED INP 09:35 → M MSPAV 13:45
PROVIDERS: ADMIT Internal Medicine; ATTEND Internal Medicine
DX: S01.81XA Laceration without foreign body of other part of head, initial encounter (principal); W19.XXXA Unspecified fall, initial encounter; Y92.199 Unspecified place in other specified residential institution as the place of occurrence of the external cause; F32.A Depression, unspecified; I48.91 Unspecified atrial fibrillation; Z79.01 Long term (current) use of anticoagulants; R31.0 Gross hematuria; N40.0 Benign prostatic hyperplasia without lower urinary tract symptoms; G25.3 Myoclonus; Z88.0 Allergy status to penicillin; Z79.899 Other long term (current) drug therapy; Y99.9 Unspecified external cause status; Y93.9 Activity, unspecified
CPT/HCPCS: 12002; 36415; 70450; 70496; 70498; 71045; 72125; 74176; 80048; 81001; 83735; 85025; 85027; 87426; 93005; 93041; 96361; 96374; 97116; 97161; 97530; 99285; G0103; G0378; J1885; Q9967

== ENCOUNTER → 2023-11-01 | Outpatient (CLI) | payer MEDICARE ==
[~2023-11-01] MED LIST changes: +ACET-839 PO; +ELIQ5TAB PO; +ENSULIQ9 PO; +KETO2SHA8 TOP; +LEVE500T5 PO; +LEVO88TA3 PO; +METO25TA4 PO; +OMEP1CAP73 PO; +ROPI5TAB19 PO; +VITA200030 PO
== END ==
LOC: M EKG 13:53
PROVIDERS: ATTEND Internal Medicine
DX: R55 Syncope and collapse (principal); Z53.9 Procedure and treatment not carried out, unspecified reason

== ENCOUNTER → 2023-11-06 | Outpatient (CLI) | payer MEDICARE | LOC: M SLEEP 07:09 | PROVIDERS: ATTEND Internal Medicine | DX: R55 Syncope and collapse (principal) ==

== ENCOUNTER → 2023-11-09 | Outpatient (CLI) | payer MEDICARE | LOC: M PLAIMG 16:09 → M PLALAB 16:09 | PROVIDERS: ATTEND Physician Assistant | DX: R06.02 Shortness of breath (principal) ==

== ENCOUNTER → 2024-03-18 | Outpatient (CLI) | payer MEDICARE ==
[2024-03-18 16:23] LABS: CREATININE FOR GFR 1.32 MG/DL (0.70-1.30); GLOMERULAR FILTRATION RATE 55.8 (>42)
== END ==
LOC: M PLALAB 13:01
PROVIDERS: ATTEND Psychiatry & Neurology Neurology
DX: I10 Essential (primary) hypertension (principal)

== ENCOUNTER → 2024-04-04 | Outpatient (REF) | payer MEDICARE ==
[2024-04-04 18:23] LABS: BASO # 0.1 10^3/uL (0.0-0.2); BASO % 0.5 % (0.0-1.0); EOS # 0.2 10^3/uL (0.0-0.5); EOS % 1.6 % (0.0-3.0); HEMATOCRIT 42.7 % (42.0-52.0); HEMOGLOBIN 13.8 g/dl (13.5-17.5); LYMPH % 18.7 % (24.0-44.0); MEAN CORPUSCULAR HGB CONC 32.3 g/dl (32.0-36.5); MONO # 1.1 10^3/uL (0.0-0.8); MONO % 10.4 % (2.0-8.0); NEUTROPHILS # 7.5 10^3/uL (1.5-8.5); NEUTROPHILS % 68.6 % (36.0-66.0); PLATELET COUNT, AUTOMATED 306 10^3/uL (150-450); RED BLOOD COUNT 4.45 10^6/uL (4.30-6.10); WHITE BLOOD COUNT 10.9 10^3/uL (4.0-10.0)
[2024-04-04 18:28] LABS: ALBUMIN 3.5 G/DL (3.2-5.2); BILIRUBIN,TOTAL 0.4 MG/DL (0.3-1.2); CALCIUM LEVEL 9.8 MG/DL (8.3-10.6); CHOLESTEROL RISK RATIO 3.77 (<5); CREATININE FOR GFR 1.28 MG/DL (0.70-1.30); GLOMERULAR FILTRATION RATE 57.9 (>42); LDL CHOLESTEROL 59.6 MG/DL (<100); POTASSIUM SERUM 5.4 MMOL/L (3.5-5.1); THYROID STIMULATING HORMONE 3.512 uIU/ML (0.55-4.78); TOTAL PROTEIN 6.9 G/DL (5.7-8.2)
[2024-04-04 18:29] LABS: FREE T4 1.4 NG/DL (0.89-1.76)
== END ==
LOC: M SFHCADAM 12:04
PROVIDERS: ATTEND Physician Assistant Medical
DX: I25.10 Atherosclerotic heart disease of native coronary artery without angina pectoris (principal); N18.31 Chronic kidney disease, stage 3a; K21.9 Gastro-esophageal reflux disease without esophagitis; R19.7 Diarrhea, unspecified; R10.9 Unspecified abdominal pain

== ENCOUNTER → 2024-04-11 | Outpatient (REF) | payer MEDICARE ==
[2024-04-11 18:06] LABS: CREATININE, URINE 80.4 MG/DL; MAU/CREAT RATIO 4.9 MCG/MG (0.0-30.0)
== END ==
PROVIDERS: ATTEND Physician Assistant Medical
DX: N18.31 Chronic kidney disease, stage 3a (principal)

== ENCOUNTER → 2024-07-02 | Outpatient (CLI) | payer MEDICARE ==
[2024-07-02 11:10] LABS: CREATININE FOR GFR 1.18 MG/DL (0.70-1.30); GLOMERULAR FILTRATION RATE 62.8 (>42)
== END ==
LOC: M PLALAB 08:43
PROVIDERS: ATTEND Psychiatry & Neurology Neurology
DX: I10 Essential (primary) hypertension (principal)

== ENCOUNTER → 2024-09-24 | Outpatient (REF) | payer MEDICARE ==
[~2024-09-24] MED LIST changes: +KETO120S5 TOP; -KETO2SHA8 TOP
[2024-09-24 18:47] LABS: BASO # 0.1 10^3/uL (0.0-0.2); BASO % 0.6 % (0.0-1.0); EOS # 0.2 10^3/uL (0.0-0.5); EOS % 2.4 % (0.0-3.0); LYMPH # 2.6 10^3/uL (1.5-5.0); LYMPH % 28.9 % (24.0-44.0); MONO # 1.1 10^3/uL (0.0-0.8); MONO % 11.8 % (2.0-8.0); NEUTROPHILS # 5.1 10^3/uL (1.5-8.5); NEUTROPHILS % 56.1 % (36.0-66.0); PLATELET COUNT, AUTOMATED 386 10^3/uL (150-450)
[2024-09-24 19:09] LABS: FREE T4 1.58 NG/DL (0.89-1.76)
[2024-09-24 19:11] LABS: ALT/SGPT 38 U/L (7.0-40); AST/SGOT 34 U/L (<34); CALCIUM LEVEL 9.6 MG/DL (8.3-10.6); CARBON DIOXIDE LEVEL 28 MMOL/L (20-31); CHLORIDE LEVEL 101 MMOL/L (98-107); CHOLESTEROL LEVEL 173 MG/DL (<200); CHOLESTEROL RISK RATIO 4.03 (<5); CREATININE FOR GFR 1.27 MG/DL (0.70-1.30); GLOMERULAR FILTRATION RATE 57.5 (>42); LDL CHOLESTEROL 52.9 MG/DL (<100); NON-HDL-C 130.1 MG/DL; POTASSIUM SERUM 5.3 MMOL/L (3.5-5.1); SODIUM LEVEL 141 MMOL/L (136-145); TRIGLYCERIDES LEVEL 386 MG/DL (<150)
[2024-09-24 19:12] LABS: TOTAL 25(OH) VITAMIN D 56.5 NG/ML (20.0-100.0)
[2024-09-24 19:13] LABS: VITAMIN B12 LEVEL 533 PG/ML (211-911)
== END ==
LOC: M SFHCADAM 13:37
PROVIDERS: ATTEND Physician Assistant Medical
DX: E78.2 Mixed hyperlipidemia (principal); I48.92 Unspecified atrial flutter; F33.2 Major depressive disorder, recurrent severe without psychotic features; I25.10 Atherosclerotic heart disease of native coronary artery without angina pectoris; N18.31 Chronic kidney disease, stage 3a

== ENCOUNTER → 2024-12-30 | Outpatient (REF) | payer MEDICARE ==
[2024-12-30 14:37] LABS: CREATININE FOR GFR 1.23 MG/DL (0.70-1.30); GLOMERULAR FILTRATION RATE 59.7 (>42)
== END ==
PROVIDERS: ATTEND Psychiatry & Neurology Neurology
DX: I10 Essential (primary) hypertension (principal)

== ENCOUNTER → 2025-01-02 | Outpatient (REF) | payer MEDICARE ==
[2025-01-02 17:23] LABS: BASO # 0.0 10^3/uL (0.0-0.2); BASO % 0.5 % (0.0-1.0); EOS # 0.4 10^3/uL (0.0-0.5); EOS % 4.4 % (0.0-3.0); LYMPH # 1.8 10^3/uL (1.5-5.0); LYMPH % 21.7 % (24.0-44.0); MONO # 0.7 10^3/uL (0.0-0.8); MONO % 8.7 % (2.0-8.0); NEUTROPHILS # 5.3 10^3/uL (1.5-8.5); NEUTROPHILS % 64.5 % (36.0-66.0); PLATELET COUNT, AUTOMATED 293 10^3/uL (150-450)
[2025-01-02 17:52] LABS: FREE T4 1.37 NG/DL (0.89-1.76)
== END ==
LOC: M SFHCADAM 11:03
PROVIDERS: ATTEND Physician Assistant Medical
DX: R23.2 Flushing (principal); R53.83 Other fatigue

== ENCOUNTER → 2025-01-17 | Outpatient (REF) | payer MEDICARE ==
[2025-01-22 18:41] LABS: TESTOSTERONE FREE (DIRECT) 35.8 pg/mL (30.0-135.0); TESTOSTERONE TOTAL FOR T&D 261.0 ng/dL (250-1100)
== END ==
PROVIDERS: ATTEND Urology
DX: N40.0 Benign prostatic hyperplasia without lower urinary tract symptoms (principal)